=== PATIENT | female | born 1940 | race Caucasian/White ===

== ENCOUNTER 2022-06-21 14:33 | Outpatient (REF) | payer BC, SELFPAY ==
--- NOTE | ~2022-06-21 | XR_ITS ---
EXAMINATION: XR CHEST CLINICAL INFORMATION: Pleural effusion COMPARISON: None TECHNIQUE: 2 views of the chest were obtained. FINDINGS: Small bilateral pleural effusions and associated bibasilar compressive atelectasis. Pulmonary vascularity is prominent and indistinct suggesting mild interstitial pulmonary edema. Cardiac silhouette within normal limits. Calcified aortic arch. Osteophyte PE of the thoracic spine. XR/XR chest 2V IMPRESSION: Small bilateral pleural effusions. Mild interstitial pulmonary edema.
== END 2022-06-21 14:34 | disposition home or self-care (01) ==
LOC: HO.XRAY 14:33
PROVIDERS: PCP Nurse Practitioner Family; Visit Provider Hospitalist
DX: J90 Pleural effusion, not elsewhere classified (principal); I50.9 Heart failure, unspecified; I42.9 Cardiomyopathy, unspecified; J45.40 Moderate persistent asthma, uncomplicated
CPT/HCPCS: 71046; 94618

== ENCOUNTER 2022-07-07 10:54 | Outpatient (REF) | payer BC, SELFPAY ==
--- NOTE | 2022-07-07 | PFT_ITS ---
Forced vital capacity 50%, FEV1 50%, FEV1 over FVC ratio is 74, [id number] 32%, and MVV 35%. Post bronchodilator therapy, there is a slight increase in EHI17-37. Total lung capacity 67%. Residual volume 90%. Diffusion capacity 35% CONCLUSION: Moderately severe restrictive pulmonary disorder. Possible [id number] degree of obstructive airway disorder with minimal improvement after bronchodilator therapy. Clinical correlation is recommended. MD IJEOMA Martinez/THERESE / [id number]
== END 2022-07-07 10:55 | disposition home or self-care (01) ==
LOC: HO.RESP 10:54
PROVIDERS: PCP Nurse Practitioner Family; Visit Provider Hospitalist
DX: Z13.89 Encounter for screening for other disorder (principal)
CPT/HCPCS: 94060; 94727; 94729

== ENCOUNTER 2022-08-17 16:09 | Outpatient (REF) | payer BC, SELFPAY ==
--- NOTE | ~2022-08-17 | XR_ITS ---
EXAMINATION: XR CHEST CLINICAL INFORMATION: Moderate persistent asthma COMPARISON: Previous chest x-ray May 2022 TECHNIQUE: 2 views of the chest were obtained. FINDINGS: The cardiac silhouette is slightly enlarged but stable. There are increased central hilar markings. The lungs are otherwise clear. The thoracic aorta is calcified. There are small to moderate bilateral pleural effusions. Findings are suggestive of mild CHF. This is similar to May 2022 exam. Bony structures are unremarkable. XR/XR chest 2V IMPRESSION: Enlarged cardiac silhouette, prominent central hilar markings and small to moderate bilateral pleural effusions. Findings are suggestive of mild CHF.
== END 2022-08-17 16:10 | disposition home or self-care (01) ==
LOC: HO.XRAY 16:09
PROVIDERS: Visit Provider Hospitalist
DX: J45.40 Moderate persistent asthma, uncomplicated (principal)
CPT/HCPCS: 71046

== ENCOUNTER → 2022-11-25 14:14 | Outpatient (BNVA) | payer BC, SELFPAY | PROVIDERS: PCP Nurse Practitioner Family; Visit Provider Hospitalist | DX: Z13.89 Encounter for screening for other disorder (principal) ==

== ENCOUNTER 2023-10-03 13:45 | Outpatient (REF) | payer BC, SELFPAY ==
--- NOTE | ~2023-10-03 | XR_ITS ---
EXAMINATION: XR CHEST CLINICAL INFORMATION: Pleural effusion. COMPARISON: Most recent chest radiograph dated 08/17/2022. TECHNIQUE: 2 views of the chest were obtained. FINDINGS: Small bilateral pleural effusions, decreased when compared to the radiograph dated 08/17/2022. No airspace consolidation. No pneumothorax. Stable cardiomediastinal silhouette. XR/XR chest 2V IMPRESSION: Small bilateral pleural effusions, decreased when compared to the radiograph dated 08/17/2022.
== END 2023-10-03 13:46 | disposition home or self-care (01) ==
LOC: HO.XRAY 13:45
PROVIDERS: Visit Provider Hospitalist
DX: R06.09 Other forms of dyspnea (principal); J90 Pleural effusion, not elsewhere classified; J98.4 Other disorders of lung; J45.40 Moderate persistent asthma, uncomplicated
CPT/HCPCS: 71046; 94618

== ENCOUNTER 2023-10-03 14:10 | Outpatient (AMB) | payer BC, SELFPAY ==
[2023-10-03 14:24] VITALS: PULSE 52; O2SAT 92; BMI 26.9
--- NOTE | 2023-10-03 14:24 | A.OFFVIS_ITS ---
Intake Vital Signs 10/03/23 14:24 Height 5 ft 2 in Weight 146 lb 13.246 oz BMI 26.9 Pulse 52 Pulse Source Pulse Oximeter Pulse Oximetry (%) 92 Oxygen Delivery Method Room Air Intake Visit Reasons: copd Construction Site Manager Required: No Allergies Sulfa (Sulfonamide Antibiotics) Adverse Reaction (Severe, Verified 10/03/23 14:26) Swelling HPI HPI Comments History of Present Illness Details The patient is an 83 year woman with history of asthma, who was in usual state health until back beginning of the year when she developed COVID. She was able to recovered from it. Apparently several months later she started developing symptoms have a consistent with CVA. She was admitted to [facility] with CVA. She was then discharged and then return to the hospital with worsening shortness of breath. She was noted to have a heart attack. She was also noted to have bilateral pleural effusions. While I had [facility] she did undergo a thoracentesis. The fluid results are not available at this time. Because of the cardiac condition the patient is transferred over to [facility]. Her echocardiogram demonstrated an EF of 25-30%. She did undergo a cardiac catheterization without any evidence of any coronary artery disease. therefore, she was diagnosed with nonischemic cardiomyopathy. She was evaluated by Cardiology and they did recommend getting an MRI of the heart to assess for infiltrative cardiac conditions that could result in the cardiomyopathy. The patient does complaint of significant dyspnea with minimal activity. She is very limited from a respiratory status. She does have a rescue inhaler although she does not find that helps her. She was also evaluated by Cardiology in her medications or further adjusted. During our visit on examination she does have decreased breath sounds with some dullness of percussion suggesting some of the recurrence of the pleural effusions. In addition to that we did go for 6 minute walk test. The patient quickly became dyspneic. It was noted the patient had lack of control pick activity with heart rate staying at 59-60 beats per minute with activity while she was short of breath with dyspnea score of 8/10. her oxygenation did drop to 88% with minimal activity. She was placed on a conserving device 2 L pulse and she was able to maintain a pulse ox of 94% with activity. Therefore, will request a conserving device at 2 L pulse with the patient at this time. Will request the smallest cylinder available in order to provide the best portability for the patient. The patient did feel significant improvement while ambulating with the oxygen which is reassuring. 07/21/2022 the patient is here for a pulmonary follow-up visit. The patient feels better overall. She did get her oxygen and also to receive her conserving device which has been affecting beneficial. She is sleeping with the oxygen and this has been helpful. We did review her chest x-ray demonstrating bilateral pleural effusions and pulmonary vascular congestion. She did follow-up with cardiology and she had her diuretics increased and some of her cardiac medicines changed. Seems to be tolerating well the changes. Will have to give more time to see address her response to therapy. She did undergo pulmonary function studies which were personally by me. She did have a moderate restriction her lung capacity and also had significant small airways disease. She did feel much better after the nebulized therapy although I am concerned with the amount of medication she would received through a nebulizer. Therefore we will go ahead and try to optimize her respiratory regimen. She has been having hard time with the powder inhalers that she coughs with them and also irritate her throat with some raspiness of her voice. Therefore will go ahead and switch her to an Advair HFA with spacer. I did provide her a spacer in the office. Hopefully she can tolerate this mechanism better. In addition to that I did provide her with incentive spirometer for her to work for deep breathing which is an issue for her. As she continues her current cardiac medications and further diuresis will go ahead and plan to have her get an x-ray in a couple weeks to see the response to therapy. 11/25/2022 the patient is here for pulmonary follow-up visit. She continues to have dyspnea on exertion. Moderate severity. The oxygen has been helpful specially in her home. She has a hard time caring the small portable oxygen tanks because her to heavy. She continues with diuresis. She has a hard time using the compression stockings all the time. She will try to do so. in the meantime she is scheduled for right heart catheterization at [facility]. Will follow up with those results she continues pleural effusions. Last chest x-ray was from the fall 2021 demonstrating bilateral pleural effusions. On examination she does have diminished breath sounds bilaterally with some dullness to percussion at the bases. Left more than right. Clinically the patient is stable so will hold off on doing the x-ray right now. However, will have her get the x-ray after her right-sided cardiac catheterization. 10/03/2023 the patient is here for a pul monary follow-up visit. Since we last spoke she has been working closely with Cardiology and also Nephrology. She continues on dialysis 3 times a week. Recently the amount of dialysis was decreased from 3 hours of 2.5 hours. Since doing that she has been having more shortness of breath. She was able to be weaned off her oxygen as some point. Although she has been getting very breathless even with her walker. She is having to take a lot of brace while walking. We did perform a 6 minute walk testing the patient does qualify for oxygen. She does well with the conserving device. Therefore will request a portable oxygen concentrator for her for better portability and easier time with the oxygen tank specially with her other comorbidities. Also going to request oxygen while sleeping. She continues with diuresis that she still makes some urine and they will talk to the auto body estimator about increasing her dialysis time to 3 hours again we did review her chest x- ray again demonstrating some cephalization perihilar congestion is mild small effusions but much improved from previous x-ray. [facility] Medical History (Updated 10/03/23 @ 22:38 by Wolf Charlton MD) Chronic restrictive lung disease Asthma Dyspnea Cardiomyopathy CHF (congestive heart failure) Pleural effusion Social History (Updated 06/21/22 @ 13:43 by HOLLEY Cummins) Patient Tobacco Use Status: Former Tobacco user Tobacco use type: Cigarette Years Smoked: 20 years Review of Systems Const Denies fever(s) Eyes Reports no additional complaints ENT Denies epistaxis Card Denies chest pain, Reports leg edema and Reports dyspnea on exertion Resp Reports cough, Denies hemoptysis and Reports dyspnea on exertion GI Reports no additional complaints Musc Reports joint swelling Skin/Breast Denies rash Neuro Reports no additional complaints Physical Exam Vital Signs: Last Vital Signs Pulse 52 10/03/23 14:24 Pulse Ox 92 10/03/23 14:24 Oxygen Delivery Method Room Air 10/03/23 14:24 BMI result Body Mass Index 26.9 Const General: comfortable HEENT Head: Yes atraumatic Eyes General: appearance normal, both eyes and all related structures Neck Neck: Yes supple Chest Chest palpation & inspection: normal inspection of the chest Resp Effort & Inspection: normal respiratory effort Auscultation: diminished lung sounds Cardio Rate: regular rate Rhythm: regular rhythm Heart sounds: S1 normal heart sound present, S2 normal heart sound present and Murmur heart sound present GI Auscultation: normal bowel sounds Skin General skin exam: no rashes or lesions noted Extrem General: No clubbing, No cyanosis and Yes edema Office Procedures 6 Minute Walk Time:: 22:41 SPO2 % at rest: 92 Pulse at rest: 78 SPO2 % during excercise: 88 Pulse during excercise: 90 Distance in yards walked: 100 Alfredo Score: 6 Supplemental Oxygen: placed on 2L/pulse with activity with pox 94% 91189 - 6 Minute Walk Assessment & Plan Assessment & Plan (1) CHF (congestive heart failure): Code(s): I50.9 - Heart failure, unspecified Qualifiers: Heart failure type: systolic Heart failure chronicity: chronic Qualified Code(s): I50.22 - Chronic systolic (congestive) heart failure (2) Cardiomyopathy: Code(s): I42.9 - Cardiomyopathy, unspecified Qualifiers: Cardiomyopathy type: unspecified Qualified Code(s): I42.9 - Cardiomyopathy, unspecified (3) Dyspnea: Code(s): R06.00 - Dyspnea, unspecified Qualifiers: Dyspnea type: dyspnea on exertion Qualified Code(s): R06.09 - Other forms of dyspnea (4) Asthma: Code(s): J45.909 - Unspecified asthma, uncomplicated Qualifiers: Asthma complication type: uncomplicated Asthma persistence: persistent Asthma severity: moderate Qualified Code(s): J45.40 - Moderate persistent asthma, uncomplicated (5) Chronic restrictive lung disease: Code(s): J98.4 - Other disorders of lung (6) Pleural effusion: Code(s): J90 - Pleural effusion, not elsewhere classified Plan Advair HFA with spacer EDI as need chest x-ray in 1-2 weeks restart oxygen supplementation 2 L pulse with activity and also should use it with sleep. conserving device for better portability outside of the home Incentive spirometry compression stockings overnight oximetry on RA diuresis/fluid removal as tolerated follow-up in 3-4 months Coding Level of Care Code Est Pt Level 4 (11709) Diagnoses Chronic systolic congestive heart failure I50.22 Heart failure type: systolic Heart failure chronicity: chronic Cardiomyopathy, unspecified type I42.9 Cardiomyopathy type: unspecified Dyspnea on exertion R06.09 Dyspnea type: dyspnea on exertion Moderate persistent asthma without complication J45.40 Asthma complication type: uncomplicated Asthma persistence: persistent Asthma severity: moderate Chronic restrictive lung disease J98.4 Pleural effusion J90 CPT Codes Coding ([id number]) Time Spent (min) 18
[2023-10-03 22:40] VITALS: PULSE 78; O2SAT 92
== END 2023-10-03 15:01 | disposition home or self-care (01) ==
PROVIDERS: PCP Internal Medicine; Visit Provider Hospitalist
DX: I50.22 Chronic systolic (congestive) heart failure (principal); I42.9 Cardiomyopathy, unspecified; R06.09 Other forms of dyspnea; J45.40 Moderate persistent asthma, uncomplicated; J98.4 Other disorders of lung; J90 Pleural effusion, not elsewhere classified
CPT/HCPCS: 94618; 99214

== ENCOUNTER 2024-03-30 15:38 | Outpatient (AMB) | payer BC, SELFPAY ==
[2024-03-30 15:42] VITALS: PULSE 64; O2SAT 93; BMI 27.0
--- NOTE | 2024-03-30 15:42 | MHC.OFFVIS ---
Vital Signs 03/30/24 15:42 Height 5 ft 2 in Weight 147 lb 11.355 oz BMI 27.0 Pulse 64 Pulse Source Pulse Oximeter Pulse Oximetry (%) 93 Oxygen Delivery Method Room Air Intake Visit Reasons: copd Home Furnishings Sales Representative Required: No Allergies Sulfa (Sulfonamide Antibiotics) Adverse Reaction (Severe, Verified 03/30/24 15:45) Swelling HPI Comments Details: The patient is an 83 year woman with history of asthma, who was in usual state health until back beginning of the year when she developed COVID. She was able to recovered from it. Apparently several months later she started developing symptoms have a consistent with CVA. She was admitted to [facility] with CVA. She was then discharged and then return to the hospital with worsening shortness of breath. She was noted to have a heart attack. She was also noted to have bilateral pleural effusions. While I had [facility] she did undergo a thoracentesis. The fluid results are not available at this time. Because of the cardiac condition the patient is transferred over to [facility]. Her echocardiogram demonstrated an EF of 25-30%. She did undergo a cardiac catheterization without any evidence of any coronary artery disease. therefore, she was diagnosed with nonischemic cardiomyopathy. She was evaluated by Cardiology and they did recommend getting an MRI of the heart to assess for infiltrative cardiac conditions that could result in the cardiomyopathy. The patient does complaint of significant dyspnea with minimal activity. She is very limited from a respiratory status. She does have a rescue inhaler although she does not find that helps her. She was also evaluated by Cardiology in her medications or further adjusted. During our visit on examination she does have decreased breath sounds with some dullness of percussion suggesting some of the recurrence of the pleural effusions. In addition to that we did go for 6 minute walk test. The patient quickly became dyspneic. It was noted the patient had lack of control pick activity with heart rate staying at 59-60 beats per minute with activity while she was short of breath with dyspnea score of 8/10. her oxygenation did drop to 88% with minimal activity. She was placed on a conserving device 2 L pulse and she was able to maintain a pulse ox of 94% with activity. Therefore, will request a conserving device at 2 L pulse with the patient at this time. Will request the smallest cylinder available in order to provide the best portability for the patient. The patient did feel significant improvement while ambulating with the oxygen which is reassuring. 07/21/2022 the patient is here for a pulmonary follow-up visit. The patient feels better overall. She did get her oxygen and also to receive her conserving device which has been affecting beneficial. She is sleeping with the oxygen and this has been helpful. We did review her chest x-ray demonstrating bilateral pleural effusions and pulmonary vascular congestion. She did follow-up with cardiology and she had her diuretics increased and some of her cardiac medicines changed. Seems to be tolerating well the changes. Will have to give more time to see address her response to therapy. She did undergo pulmonary function studies which were personally by me. She did have a moderate restriction her lung capacity and also had significant small airways disease. She did feel much better after the nebulized therapy although I am concerned with the amount of medication she would received through a nebulizer. Therefore we will go ahead and try to optimize her respiratory regimen. She has been having hard time with the powder inhalers that she coughs with them and also irritate her throat with some raspiness of her voice. Therefore will go ahead and switch her to an Advair HFA with spacer. I did provide her a spacer in the office. Hopefully she can tolerate this mechanism better. In addition to that I did provide her with incentive spirometer for her to work for deep breathing which is an issue for her. As she continues her current cardiac medications and further diuresis will go ahead and plan to have her get an x-ray in a couple weeks to see the response to therapy. 11/25/2022 the patient is here for pulmonary follow-up visit. She continues to have dyspnea on exertion. Moderate severity. The oxygen has been helpful specially in her home. She has a hard time caring the small portable oxygen tanks because her to heavy. She continues with diuresis. She has a hard time using the compression stockings all the time. She will try to do so. in the meantime she is scheduled for right heart catheterization at [facility]. Will follow up with those results she continues pleural effusions. Last chest x-ray was from the fall 2021 demonstrating bilateral pleural effusions. On examination she does have diminished breath sounds bilaterally with some dullness to percussion at the bases. Left more than right. Clinically the patient is stable so will hold off on doing the x-ray right now. However, will have her get the x-ray after her right-sided cardiac catheterization. 10/03/2023 the patient is here for a pulmonary follow-up visit. Since we last spoke she has been working closely with Cardiology and also Nephrology. She continues on dialysis 3 times a week. Recently the amount of dialysis was decreased from 3 hours of 2.5 hours. Since doing that she has been having more shortness of breath. She was able to be weaned off her oxygen as some point. Although she has been getting very breathless even with her walker. She is having to take a lot of brace while walking. We did perform a 6 minute walk testing the patient does qualify for oxygen. She does well with the conserving device. Therefore will request a portable oxygen concentrator for her for better portability and easier time with the oxygen tank specially with her other comorbidities. Also going to request oxygen while sleeping. She continues with diuresis that she still makes some urine and they will talk to the external relations director about increasing her dialysis time to 3 hours again we did review her chest x-ray again demonstrating some cephalization perihilar congestion is mild small effusions but much improved from previous x-ray. 03/30/2024 the patient is here for a pulmonary follow-up visit. Overall she is doing very well. She was able to cut down dialysis down to 2 times a week because she is making some urine which is reassuring. She continues to respond well to the fluid removal. She did have a chest x-ray back in 10/12/2023 which I did review demonstrating interval improvement of the pleural effusions although she still has some minimal amount of bilateral effusions noted. Her breathing is a lot better. She has not had to use the oxygen as much. The patient also has inhalers. Ultimately she is doing much better overall. She will continue to use her respiratory therapy and oxygen as prescribed. No additional imaging studies warranted at this time. Will follow-up in a year's time. If she has any worsening symptoms prior to that she will call for an earlier assessment. [facility] Medical History (Updated 10/03/23 @ 22:38 by Wolf Charlton MD) Chronic restrictive lung disease Asthma Dyspnea Cardiomyopathy CHF (congestive heart failure) Pleural effusion Social History (Updated 06/21/22 @ 13:43 by HOLLEY Cummins) Patient Tobacco Use Status: Former Tobacco user Tobacco use type: Cigarette Years Smoked: 20 years Review of Systems Const Denies fever(s) Eyes Reports no additional complaints ENT Denies epistaxis Card Denies chest pain, Denies leg edema and Reports dyspnea on exertion Resp Reports cough, Denies hemoptysis and Reports dyspnea on exertion GI Reports no additional complaints Musc Reports joint swelling Skin/Breast Denies rash Neuro Reports no additional complaints Physical Exam Vital Signs: Last Vital Signs Pulse 64 03/30/24 15:42 Pulse Ox 93 03/30/24 15:42 Oxygen Delivery Method Room Air 03/30/24 15:42 BMI result Body Mass Index 27.0 Const General: comfortable HEENT Head: Yes atraumatic Eyes General: appearance normal, both eyes and all related structures Neck Neck: Yes supple Chest Chest palpation & inspection: normal inspection of the chest Resp Effort & Inspection: normal respiratory effort Auscultation: diminished lung sounds Cardio Rate: regular rate Rhythm: regular rhythm Heart sounds: S1 normal heart sound present, S2 normal heart sound present and Murmur heart sound present GI Auscultation: normal bowel sounds Skin General skin exam: no rashes or lesions noted Extrem General: No clubbing, No cyanosis and No edema Assessment & Plan Assessment & Plan (1) CHF (congestive heart failure): Code(s): I50.9 - Heart failure, unspecified Category: Medical Qualifiers: Heart failure chronicity: chronic Heart failure type: systolic Qualified Code(s): I50.22 - Chronic systolic (congestive) heart failure (2) Cardiomyopathy: Code(s): I42.9 - Cardiomyopathy, unspecified Category: Medical Qualifiers: Cardiomyopathy type: unspecified Qualified Code(s): I42.9 - Cardiomyopathy, unspecified (3) Dyspnea: Code(s): R06.00 - Dyspnea, unspecified Category: Medical Qualifiers: Dyspnea type: dyspnea on exertion Qualified Code(s): R06.09 - Other forms of dyspnea (4) Asthma: Code(s): J45.909 - Unspecified asthma, uncomplicated Category: Medical Qualifiers: Asthma complication type: uncomplicated Asthma persistence: persistent Asthma severity: moderate Qualified Code(s): J45.40 - Moderate persistent asthma, uncomplicated (5) Chronic restrictive lung disease: Code(s): J98.4 - Other disorders of lung Category: Medical (6) Pleural effusion: Code(s): J90 - Pleural effusion, not elsewhere classified Category: Medical Plan Advair HFA with spacer EDI as needed continue oxygen supplementation 2 L pulse with activity and also should use it with sleep. conserving device for better portability outside of the home Incentive spirometry compression stockings diuresis/fluid removal as tolerated follow-up in 10-12 months Coding Level of Care Code Est Pt Level 4 (99053) Diagnoses Chronic systolic congestive heart failure I50.22 Heart failure chronicity: chronic Heart failure type: systolic Cardiomyopathy, unspecified type I42.9 Cardiomyopathy type: unspecified Dyspnea on exertion R06.09 Dyspnea type: dyspnea on exertion Moderate persistent asthma without complication J45.40 Asthma complication type: uncomplicated Asthma persistence: persistent Asthma severity: moderate Chronic restrictive lung disease J98.4 Pleural effusion J90 Time Spent (min) 17
== END 2024-03-30 15:57 | disposition home or self-care (01) ==
PROVIDERS: PCP Internal Medicine; Visit Provider Hospitalist
DX: I50.22 Chronic systolic (congestive) heart failure (principal); I42.9 Cardiomyopathy, unspecified; R06.09 Other forms of dyspnea; J45.40 Moderate persistent asthma, uncomplicated; J98.4 Other disorders of lung; J90 Pleural effusion, not elsewhere classified
CPT/HCPCS: 99214

== ENCOUNTER → 2024-03-30 15:38 | Outpatient (BNVA) | payer BC, SELFPAY | PROVIDERS: PCP Internal Medicine; Visit Provider Hospitalist ==